=== PATIENT | female | born 1985 | race Caucasian/White ===

== ENCOUNTER 2021-03-16 13:13 | Outpatient (CLI) | payer OTHER, SELFPAY ==
[2021-03-16 14:20] LABS: EDCOVIDSCREEN Negative (Negative)
== END 2021-03-16 13:14 | disposition home or self-care (01) ==
PROVIDERS: PCP Family Medicine; Visit Provider Obstetrics & Gynecology
DX: O02.1 Missed abortion (principal); Z3A.00 Weeks of gestation of pregnancy not specified; Z01.812 Encounter for preprocedural laboratory examination; Z20.822 Contact with and (suspected) exposure to COVID-19
CPT/HCPCS: 36415; 86900; 86901; 87426; C9803

== ENCOUNTER 2021-03-17 02:34 | Day surgery (SDC) | payer OTHER, SELFPAY ==
[2021-03-15 15:51] VITALS: BMI 31.1
--- NOTE | 2021-03-17 06:48 | P.PNAN_ITS ---
Anes - Initial Pre Proc Eval Procedure: Operation Date: 03/17/21 07:30 Proposed Procedures p Suction Dilatation and Curettage - Amanda Tejada MD Date/Time: 03/17/21 06:48 Surgeon: Amanda Tejada MD Pre Op Diagnosis: missed AB Patient Data Age: 35 Gender: F Height: 1.5 m Weight: 70 kg Allergies Allergy/AdvReac Type Severity Reaction Status Date / Time venom-honey bee Allergy Severe Anaphylaxis Verified 03/17/21 06:24 nitrofurantoin Allergy Unknown Hives Verified 03/15/21 15:47 Home Medications Medication Instructions Recorded Confirmed Type buspirone 10 mg PO TID PRN 03/15/21 03/17/21 History cetirizine [Zyrtec] 10 mg PO DAILY 03/15/21 03/17/21 History diphenhydramine HCl [Benadryl] 50 mg PO HS PRN 03/15/21 03/17/21 History ergocalciferol (vitamin D2) 1,250 mcg PO WEEKLY 03/15/21 03/17/21 History Patient hx anesthesia problems: none Family hx anesthesia problems: none [facility] Past Medical History Medical History KAYKAY positive Anemia Asthma Hypothyroid Lumbar spondylosis Surgical History Surgical History H/O hernia repair H/O rhinoplasty History of cholecystectomy Family History Family History Father Diabetes mellitus Sibling Diabetes mellitus Grandparent Family history of mental disorder Family history of malignant neoplasm Family history of lung cancer Social History Social History Smoking status: Never smoker Alcohol intake: never Substance use: never Living arrangements: with family Additional living arrangements comments: BOYFRIEND AND DAUGHTER Spiritual care concerns: No Anes - Eval Final PreProcedure Day of Procedure 03/17/21 06:48 Patient weight: obese Heart: regular rate and rhythm Lungs: clear to auscultation Airway: Mallampati scale class II Neurological: alert and oriented Last oral intake: >/= 8 hours ASA classification: II Emergent: no Anesthetic plan: proceed Anesthesia type and monitoring: general GIVS and standard monitoring Informed Consent: The patient's anesthetic plan and its attendant risks and benefits were discussed with the patient/family/POA. Questions were solicited and answers provided to the satisfaction of the patient/family/POA.
[2021-03-17] MEDS: ACETAMINOPHEN 500 MG TABLET 1000 MG PO (06:59)
[2021-03-17] MEDS: LACTATED RINGERS 1,000 ML 30 ML IV CONT ×2 (07:00→09:22)
--- NOTE | 2021-03-17 07:26 | PM.IMHP ---
H&P: HPI History of Present Illness Date/Time: 03/17/21 07:26 Chief Complaint: miscarriage Narrative: 35yo at 12+ weeks by dates, normal US 4 weeks ago, 2 days ago US with 6w6d pole with no FHT. Some small spotting this past week, none currently. Review of Systems Review of Systems: All systems reviewed & are unremarkable except as noted in HPI and below PMFSH Past Medical History Medical History KAYKAY positive Anemia Asthma Hypothyroid Lumbar spondylosis Surgical History Surgical History H/O hernia repair H/O rhinoplasty History of cholecystectomy Family History Family History Father Diabetes mellitus Sibling Diabetes mellitus Grandparent Family history of mental disorder Family history of malignant neoplasm Family history of lung cancer Social History Social History Smoking status: Never smoker Alcohol intake: never Substance use: never Living arrangements: with family Additional living arrangements comments: BOYFRIEND AND DAUGHTER Spiritual care concerns: No Meds Home Medications and Allergies Home Medications Medication Instructions Recorded Confirmed Type buspirone 10 mg PO TID PRN 03/15/21 03/17/21 History cetirizine [Zyrtec] 10 mg PO DAILY 03/15/21 03/17/21 History diphenhydramine HCl [Benadryl] 50 mg PO HS PRN 03/15/21 03/17/21 History ergocalciferol (vitamin D2) 1,250 mcg PO WEEKLY 03/15/21 03/17/21 History Allergies Allergy/AdvReac Type Severity Reaction Status Date / Time venom-honey bee Allergy Severe Anaphylaxis Verified 03/17/21 06:24 nitrofurantoin Allergy Unknown Hives Verified 03/15/21 15:47 Exam Const: General: no acute distress Resp: Effort & Inspection: normal respiratory effort Auscultation: clear to auscultation bilaterally Cardio: Rate: regular rate Rhythm: regular rhythm GI: GI Palp: Yes Soft to palpation Extrem: General: normal to inspection Assessment and Plan Assessment and plan (1) Missed : Code(s): O02.1 - Missed Status: Acute Additional Plan Pt opts for D and C for mgt. Discussed RBA, will proceed.
--- NOTE | 2021-03-17 07:30 | WPDHPUPDATE1 ---
History and Physical Update Update Date/Time: 03/17/21 07:30 History and Physical has been reviewed, including an updated exam of the patient. There are NO changes in the patient's condition. Risks, benefits, and alternatives have been discussed and questions answered. Patient agrees to proceed with procedure.
[2021-03-17 07:35] VITALS: BP 118/70; PULSE 85; RESP 20; TEMP 36.6; O2SAT 100
[2021-03-17] MEDS: BUPIVACAINE/EPINEPHRINE 0.25% 10 ML VIAL INFILTRATE (07:55)
--- NOTE | 2021-03-17 07:58 | P.OP_ITS ---
Procedure Note - Detailed Date of Procedure 03/17/21 Pre-op Diagnosis missed AB Post-op Diagnosis same Procedure Performed suction D and C Surgeon Amanda Tejada MD Anesthesia MAC Description of Procedure The patient was taken to the OR and placed in supine position in dorsal lithotomy. She received MAC anesthesia and doxycycline. She was prepped and draped in normal fashion. A speculum was placed and the cervix was grasped with a single tooth tenaculum. A paracervical block was placed with 10cc 0.25% mar latasha with epinephrine. The cervix was sequentially dilated to 8 brandt. The suction was tested and then the suction catheter was inserted into the uterine cavity. Several passes were made until no further products of conception were obtained. The tenaculum was removed and hemostasis was obtained with pressure and monsel's solution. The speculum was removed. The patient tolerated the procedure well and was taken to the recovery room in stable condition. Drains No Packing No Pathology yes Complications No immediate complications Condition stable Disposition same day
[2021-03-17 08:04] VITALS: BP 127/69; PULSE 95; RESP 16; O2SAT 98
[2021-03-17 08:28] VITALS: BP 124/79; PULSE 70; RESP 14; O2SAT 100
[2021-03-17 09:05] VITALS: BP 102/79; PULSE 73; RESP 14
[2021-03-17] MEDS: oxyCODONE HCL (*CRX) 5 MG TAB IR PO (09:09)
== END 2021-03-17 10:00 | disposition home or self-care (01) ==
PROVIDERS: PCP Family Medicine; Visit Provider Obstetrics & Gynecology
PROC: (CPT 59820; principal; 2021-03-17 07:30)
DX: O02.1 Missed abortion (principal)
CPT/HCPCS: 59820; 36415; 86900; 86901; 87426; 88305; A9270; C9803; J2210; J2250; J2704; J3010; J7120

== ENCOUNTER 2022-07-02 11:18 | Outpatient (CLI) | payer OTHER, SELFPAY ==
--- NOTE | ~2022-07-02 | XR_ITS ---
EXAMINATION: XR ankle RT min 3V, XR foot RT min 3V DATE: 07/02/2022 11:40 INDICATION: Pain at the right first metatarsal and medial aspect of the right ankle TECHNIQUE: 1. Anteroposterior, mortise, additional oblique and lateral view of the right ankle were obtained. 2. Dorsoplantar, two oblique and lateral views of the right foot were obtained. COMPARISON: None. FINDINGS: Alignment of the right foot and ankle is normal. No fracture or osteochondral lesion. Joint spaces ar e well maintained. No cortical erosions or periosteal reaction. Moderate sized subacromial spur. No a nkle joint effusion. The soft tissues are unremarkable. IMPRESSION: 1. Calcaneal spur. Otherwise unremarkable right foot and ankle radiographs. Reviewed, dictated and finalized at location A. [employer] TECHNICIAN IMPRESSION: 1. Calcaneal spur. Otherwise unremarkable right foot and ankle radiographs.
== END 2022-07-02 11:19 ==
LOC: MICIMG 11:22
PROVIDERS: PCP Family Medicine; Visit Provider Physician Assistant
DX: M25.571 Pain in right ankle and joints of right foot (principal); M77.31 Calcaneal spur, right foot
CPT/HCPCS: 73610; 73630